=== PATIENT | male | born 1980 | race Two or more races ===

== ENCOUNTER → 2024-09-06 | Outpatient (CLI) | payer OTHER, SELFPAY ==
[2024-09-06 11:27] LABS: Basophils # (Auto) 0.1 Thou/mm3 (0.0-0.2); Basophils % (Auto) 1 % (0-2.5); Eosinophils # (Auto) 0.3 Thou/mm3 (0.0-0.5); Eosinophils % (Auto) 6 % (0-10); Hematocrit 45.1 % (41.0-53.0); Hemoglobin 15.4 g/dL (13.5-16.0); Immature Granulocytes % (Auto) 2 % (0-0); Immature Granulocytes Auto 0.11 Thou/mm3 (0.00-0.00); Lymphocytes # (Auto) 1.9 Thou/mm3 (1.0-4.8); Lymphocytes % (Auto) 35 % (10-50); Mean Corpuscular HGB Conc 34.1 g/dl (31.0-37.0); Mean Corpuscular Hemoglobin 28.5 pg (25.0-35.0); Mean Corpuscular Volume 84 fL (80-100); Monocytes # (Auto) 0.4 Thou/mm3 (0.0-0.8); Monocytes % (Auto) 7 % (0-12); Neutrophils # (Auto) 2.7 Thou/mm3 (1.8-7.7); Neutrophils % (Auto) 49 % (37-80); Nucleated Red Blood Cell % 0 /100 WBC (0); Platelet Count 166 Thou/mm3 (140-440); RDW Standard Deviation 39.5 fL (35.1-43.9); White Blood Count 5.5 Thou/mm3 (3.8-10.6)
[2024-09-06 11:40] LABS: Collection Type, Urine Clean Catch; Squamous Epithelial Cell,Urine 0 /hpf (0-5); WBC,Urine 0 /hpf (0-5)
[2024-09-06 11:45] LABS: Alanine Aminotransferase 14 U/L (10-49); Albumin, Serum 4.3 gm/dL (3.5-5.0); Albumin/Globulin Ratio 1.9 (1.2-2.2); Alkaline Phosphatase 102 U/L (46-116); Anion Gap 8 (7-16); Aspartate Amino Transferase 16 U/L (0-34); BUN/Creatinine Ratio 17 Ratio (12-20); Bilirubin,Total 0.5 mg/dL (0.3-1.2); Blood Urea Nitrogen 17 mg/dL (9-23); Calcium 9.1 mg/dL (8.3-10.6); Calcium (Corrected) 9.1 mg/dL (8.5-10.1); Carbon Dioxide 26.4 mMol/L (20.0-31.0); Cardiac Risk Estimate 3.9 RATIO (4.0-6.7); Chloride 99 mMol/L (98-107); Cholesterol 203 mg/dL (132-200); Globulin 2.3 gm/dL (2.3-3.5); Glucose 194 mg/dL (74-106); HDL Cholesterol 52 mg/dL (40-60); LDL Cholesterol,Calculated 130 mg/dL (0-130); Osmolality,Calculated 272 (275-295); Potassium 4.8 mMol/L (3.4-5.1); Sodium 133 mMol/L (136-145); Thyroid Stimulating Hormone 3.33 uIU/mL (0.55-4.78); Total Protein 6.6 gm/dL (5.7-8.2); Triglycerides 107 mg/dL (30-150); Vitamin D 25 Hydroxy Total 14.6 ng/mL (7.3-40.2); eGFR > 60 See Note
[2024-09-06 12:16] LABS: Bacteria,Urine Rare; Bilirubin,Urine Negative (Negative); Blood,Urine Negative (Negative); Clarity,Urine Clear (Clear/Hazy); Color,Urine Lt-Yellow (Lt Yel-Yel); Culture Indicated,Urine Not Indicated; Glucose, Urine 4+ (Negative); Ketones,Urine Negative (Negative); Leukocyte Esterase,Urine Negative (Negative); Nitrite,Urine Negative (Negative); Protein,Urine Negative (Neg - Trace); RBC,Urine 2 /hpf (0-3); Specific Gravity,Urine 1.029 (1.001-1.035); Urobilinogen,Urine Negative mg/dL (0.0-1.0)
== END | disposition home or self-care (01) ==
LOC: COPL 10:54
PROVIDERS: PCP Nurse Practitioner Family; Referring Provider Nurse Practitioner Family; Visit Provider Nurse Practitioner Family
DX: Z00.00 Encounter for general adult medical examination without abnormal findings (principal); Z13.0 Encounter for screening for diseases of the blood and blood-forming organs and certain disorders involving the immune mechanism; Z13.29 Encounter for screening for other suspected endocrine disorder; Z13.220 Encounter for screening for lipoid disorders
CPT/HCPCS: 36415; 80053; 80061; 81001; 82306; 84443; 85025

== ENCOUNTER 2024-09-16 14:50 | Emergency (ER) | payer OTHER, BC, SELFPAY ==
--- NOTE | 2024-09-16 14:52 | EDNOTE_ITS ---
<Statement entered by Tiffanie Pan MD - 09/17/24 19:21> As co-signing physician, I was present and available for consult prn. I concur with the plan and care as documented by the midlevel provider. ED General RME/HPI General Chief complaint: Abdominal Pain Stated complaint: ABDOMINAL PAIN Time Seen by Provider: 09/16/24 14:51 Arrival date/time: 09/16/24 14:50 RME / HPI RME / HPI narrative: 44-year-old male patient with with significant history of diabetes mellitus, came in for evaluation regarding right -sided abdominal pain. Onset of symptoms few minutes prior to ER visit as sudden onset of right-sided abdominal pain, severity 10 out of 10 pain associated with nausea vomiting. Denies any dysuria. Denies any hematuria. Denies any similar episode in the past. Denies any fever . No patient was given IV Tylenol on the way to the emergency room. Related Data Home Medications ?Medication ?Instructions ?Recorded ?Confirmed metformin 1,000 mg tablet 1,000 mg PO BID 01/19/20 01/19/20 sitagliptin phosphate 25 mg tablet 25 mg PO QDAY 01/19/20 01/19/20 (Januvia) Previous Rx's ?Medication ?Instructions ?Recorded metoclopramide HCl 10 mg tablet 10 mg PO Q6H PRN nausea and 11/14/23 (Reglan) vomiting #30 tabs metoclopramide HCl 10 mg tablet 10 mg PO Q6H PRN nausea and 06/02/24 (Reglan) vomiting #20 tabs metoclopramide HCl 10 mg tablet 10 mg PO Q6H PRN nausea and 09/16/24 (Reglan) vomiting #20 tabs metoclopramide HCl 10 mg tablet 10 mg PO Q6H PRN nausea and 09/16/24 (Reglan) vomiting #30 tabs Allergies Allergy/AdvReac Type Severity Reaction Status Date / Time No Known Allergies Allergy Verified 06/02/24 10:59 Review of Systems Review of Systems Narrative Review of Systems: Review of system reviewed and within normal limits except mentioned in HPI ED Exam Narrative Physical exam: VITAL SIGNS: Reviewed. GENERAL APPEARANCE: Alert and interactive, follows commands, no acute distress, HEAD AND FACE: Non-traumatic. ENT: PERRL, pink conjunctivitis, eyelid no trauma, Mucous membrane moist. NECK: Supple, nontender, no nuchal rigidity. CHEST: No tenderness, no crepitus, no paradoxical movement, no retractions. LUNGS: Clear, well ventilated, symmetric, no rales, no wheezing, no ronchi, no stridor, good breath sounds bilaterally. HEART: Regular rate, regular rhythm, no murmur, no gallops. ABDOMEN: Soft, positive bowel sounds, nondistended, no guarding, right abdominal tenderness, no rebound, no masses, RECTAL: Deferred. GENITAL: Deferred. NEUROLOGICAL: Gross motor function intact sensory function intact, Appropriate for age. MUSCULOSKELETAL: low back nontender, full range of motion. EXTREMITIES: Nontender, full range of motion. SKIN: Color pink, dry, no rash, no lacerations, no abrasions, no contusions. LYMPHATICS: Deferred. Course Quality Measures none Orders Category Date Time Status EKG (ED ONLY) *Do not use* NOW Care 09/16/24 14:[address] abdomen pelvis wo con Stat Exams 09/16/24 14:56 Completed EKG (ED Only) Stat Exams 09/16/24 14:57 Ordered CBC Stat Lab 09/16/24 15:14 Completed Comprehensive Metabolic Panel Stat Lab 09/16/24 15:14 Completed Partial Thromboplastin Time Stat Lab 09/16/24 15:14 Completed Urinalysis Stat Lab 09/16/24 18:18 Completed HYDROmorphone INJ [Dilaudid Inj] Med 09/16/24 15:03 Discontinued 2 mg IVP X1 ONE Ketorolac Inj [Toradol Inj] Med 09/16/24 14:51 Discontinued 30 mg IVP X1 ONE Sodium Chloride 0.9% 1000 ml [Ns] 1,000 ml Med 09/16/24 15:03 Discontinued IV 999 mls/hr Vital Signs Vital signs: Vital Signs Temperature 97.7 F 09/16/24 15:00 Pulse Rate 91 09/16/24 15:00 Respiratory Rate 19 09/16/24 15:00 Blood Pressure 204/95 H 09/16/24 15:00 Pulse Oximetry (%) 100 09/16/24 15:00 Oxygen Delivery Method Room Air 09/16/24 15:00 [facility] Patient data External records reviewed:: None Clinical information provided by:: patient Social determinants that could affect healthcare access:: none Patient has the following chronic illnesses:: Diabetes mellitus How is presenting disease/condition affected by chronic disease/condition?: e xacerbated by Evaluation data The following diagnostics were reviewed and interpreted by me:: lab results, radiology exam(s) and EKG tracing(s) Lab and/or radiology exams considered but not ordered:: None Interpretation Summary: EKG as interpreted by me showed sinus rhythm, ventricular rate of 84 bpm, FL interval 152 MS, no ST segment elevation depression noted. Laboratory couple came back unremarkable. CT scan of the abdomen and pelvis also came back normal. Medications Medications considered but not ordered:: None Medication administrations:: Medication Administration History Discontinued Medications Hydromorphone HCl (Hydromorphone Inj 2 Mg/Ml Vial) 2 mg IVP X1 ONE Stop: 09/16/24 15:04 Last Admin: 09/16/24 15:15 Dose: 2 mg Documented By: RAMON Sodium Chloride (Ns) 1,000 mls @ 999 mls/hr IV .Q1H1M ONE Stop: 09/16/24 16:03 Last Infusion: 09/16/24 18:38 Dose: Infused Documented By: Admin: 09/16/24 15:16 Dose: 999 mls/hr Documented By: RAMON Ketorolac Tromethamine (Ketorolac Inj 30 Mg/Ml Vial) 30 mg IVP X1 ONE Stop: 09/16/24 14:52 Last Admin: 09/16/24 14:57 Dose: 30 mg Documented By: RAMON IV fluids Toradol and Dilaudid Consultations Consultation(s) initiated? (list below): No Diagnosis Differential Diagnosis ED Complaint MDM: Abdominal pain, renal colic, kidney stones, gastroparesis Most likely diagnosis given after review of the tests above:: Abdominal pain Admission Indicated Admission indicated?: not indicated Explain why admission is indicated or not indicated:: Stable for discharge Admission Request Was there a request for admission?: No Disposition Plan Disposition Plan: Discharge Discharge Attestation Discharge Attestation: The patient and all family members were given an opportunity to ask questions and understood the discharge instructions. Discharge instructions specifically effects, indications for sooner follow up or return to the emergency department, and the expected course of current diagnosis. Patient condition: Stable Medical Decision Making MDM Narrative MDM Narrative: 44-year-old male patient with with significant history of diabetes mellitus, came in for evaluation regarding right -sided abdominal pain. Onset of symptoms few minutes prior to ER visit as sudden onset of right-sided abdominal pain, severity 10 out of 10 pain associated with nausea vomiting. Denies any dysuria. Denies any hematuria. Denies any similar episode in the past. Denies any fever . No patient was given IV Tylenol on the way to the emergency room. EKG as interpreted by me showed sinus rhythm, ventricular rate of 84 bpm, FL interval 152 MS, no ST segment elevation depression noted. Laboratory couple came back unremarkable. CT scan of the abdomen and pelvis also came back normal. On multiple reevaluation patient abdominal pain is totally gone. Patient received Dilaudid, Toradol, and IV fluids for hydration. Differential Diagnosis Differential Diagnosis: Abdominal pain, renal colic, kidney stones, gastroparesis Lab Data 09/16/24 15:14 09/16/24 15:14 Labs: Lab Results 09/16/24 09/16/24 Range/Units 15:14 18:18 WBC 9.8 (3.8-10.6) Thou/mm3 RBC 5.66 (4.50-5.90) Miln/mm3 Hgb 16.5 H (13.5-16.0) g/dL Hct 45.8 (41.0-53.0) % MCV 81 (80-100) fL MCH 29.2 (25.0-35.0) pg MCHC 36.0 (31.0-37.0) g/dl RDW Std Deviation 36.4 (35.1-43.9) fL Plt Count 208 D (140-440) Thou/mm3 Neut % (Auto) 78 (37-80) % Lymph % (Auto) 15 (10-50) % [place] % (Auto) 5 (0-12) % Eos % (Auto) 1 (0-10) % Baso % (Auto) 1 (0-2.5) % Neut # (Auto) 7.7 (1.8-7.7) Thou/mm3 Lymph # (Auto) 1.5 (1.0-4.8) Thou/mm3 [place] # (Auto) 0.4 (0.0-0.8) Thou/mm3 Eos # (Auto) 0.1 (0.0-0.5) Thou/mm3 Baso # (Auto) 0.1 (0.0-0.2) Thou/mm3 Immature Gran # (Auto) 0.07 H (0.00-0.00) Thou/mm3 Absolute Nucleated RBC 0.00 (0.00-0.00) Thou/mm3 Immature Gran % 1 H (0-0) % Nucleated RBC % 0 (0) /100 WBC APTT 23.4 (22.0-36.0) Seconds Sodium 133 L (136-145) mMol/L Potassium 3.8 (3.4-5.1) mMol/L Chloride 99 (98-107) mMol/L Carbon Dioxide 22.4 (20.0-31.0) mMol/L Anion Gap 12 (7-16) BUN 12 (9-23) mg/dL Creatinine 1.2 (0.6-1.3) mg/dL Estim Creat Clear Calc 98.6 (>60) mL/min eGFR > 60 (60 - ) See Note BUN/Creatinine Ratio 10 L (12-20) Ratio Glucose 256 H (74-106) mg/dL Calculated Osmolality 275 (275-295) Calcium 10.1 (8.3-10.6) mg/dL Corrected Calcium 10.1 (8.5-10.1) mg/dL Total Bilirubin 1.0 (0.3-1.2) mg/dL AST 16 (0-34) U/L ALT 26 (10-49) U/L Alkaline Phosphatase 111 (46-116) U/L Total Protein 7.8 (5.7-8.2) gm/dL Albumin 5.1 H (3.5-5.0) gm/dL Globulin 2.7 (2.3-3.5) gm/dL Albumin/Globulin Ratio 1.9 (1.2-2.2) Ur Collection Type Clean Catch Urine Color Yellow (Lt Yel-Yel) Urine Clarity Clear (Clear/Hazy) Urine pH 7.0 (5.0-7.0) Ur Specific [place] 1.048 H (1.001-1.035) Urine Protein 1+ A (Neg - Trace) Urine Glucose (UA) 4+ A (Negative) Urine Ketones 2+ A (Negative) Urine Blood Negative (Negative) Urine Nitrite Negative (Negative) Urine Bilirubin Negative (Negative) Urine Urobilinogen (Auto) Negative (0.0-1.0) mg/dL Ur Leukocyte Esterase Negative (Negative) Urine RBC 0 (0-3) /hpf Urine WBC 0 (0-5) /hpf Ur Squamous Epith Cells 1 (0-5) /hpf Urine Bacteria None (None) Discharge Plan Plan Patient Disposition: HOME (Self Care) Disposition Comment: stable Prescriptions/Referrals Prescriptions/Med Rec: New metoclopramide HCl [Reglan] 10 mg tablet 10 mg PO Q6H PRN (Reason: nausea and vomiting) Qty: 20 0RF metoclopramide HCl [Reglan] 10 mg tablet 10 mg PO Q6H PRN (Reason: nausea and vomiting) Qty: 30 0RF No Action metformin 1,000 mg Tablet 1,000 mg PO BID Januvia 25 mg Tablet 25 mg PO QDAY metoclopramide HCl [Reglan] 10 mg tablet 10 mg PO Q6H PRN (Reason: nausea and vomiting) Qty: 20 0RF metoclopramide HCl [Reglan] 10 mg tablet 10 mg PO Q6H PRN (Reason: nausea and vomiting) Qty: 30 0RF Referrals: JOSE ROBERTO العراقي [Primary Care Provider] - In 1 week Problem List Clinical Impression: Abdominal pain Patient/Caregiver Discharge Instructions Discharge Activity: activity as tolerated Education Materials: Abdominal Pain Additional Instructions: Thank you for the opportunity for serving you today. You are stable for discharged . You are advised to: Follow-up with your PCP in 1 to 2 days Return to ED for worsening of symptoms Increase oral fluids Take medication as prescribed Print Language: Wolof Stand Alone Forms: Jaylin Award Info., Patient Portal Info Letter JAMIE/MELISSA Supervising Physician JAMIE/MELISSA Supervising Physician: MD Maxim
--- NOTE | 2024-09-16 14:56 | XR_ITS ---
Examination: CT abdomen and pelvis without contrast. Coronal 3-D reconstructions. Sagittal 2-D reconstructions. Date and time of exam:September 16, 2024 1618 hrs. Indications: Onset right-sided flank pain today CTDI: vol (mGy): 11.8 DLP: (mGycm): 826 Technique: Axial images of the abdomen have been obtained, 3 mm slice thickness Intravenous contrast material has not been administered. Low dose protocols were performed. One or more of the following dose reduction techniques were used; automated exposure control, adjustment of the mA and/or KV according to patient size, use of iterative reconstruction technique. Findings: Liver is mildly irregular in contour, no focal liver lesions Absent gallbladder No pancreatic or splenic mass Normal adrenal glands. No renal or ureteral calculi There is mild bilateral renal parenchymal scar formation Aorta normal size Normal appendix 8mm fat-containing umbilical hernia No prostatomegaly No bladder mass or bladder calculi Moderate osteopenia Impression: Suspect primary hepatocellular disease Mild bilateral renal parenchymal scar formation No renal or ureteral calculi, no hydronephrosis Normal appendix No bladder mass or bladder calculi
[2024-09-16] MEDS: KETOROLAC INJ 30 MG/ML VIAL IVP (14:57)
--- NOTE | 2024-09-16 14:57 | EKG_ITS ---
[facility] Test Date: 2024-09-16 Pat Name: GRACIELA RYAN Department: Room: - Gender: Male [employer]: : [id number] Requested By: Kenny Celaya Order Number: [id number] Reading MD: Kenny Celaya Measurements Intervals [place] Rate: 84 P: 48 IA: 152 QRS: 47 QRSD: 96 T: 45 QT: 371 QTc: 440 Interpretive Statements SINUS RHYTHM Compared to ECG 06/02/2024 11:38:31 Sinus arrhythmia no longer present /store/S0/[id number]/ecg/[id number].pdf
[2024-09-16 14:58] VITALS: PULSE 98; RESP 18; O2SAT 98; BMI 33.5
[2024-09-16 15:00] VITALS: BP 204/95; PULSE 91; RESP 19; TEMP 36.5; O2SAT 100
[2024-09-16] MEDS: HYDROmorphone INJ 2 MG/ML VIAL IVP (15:15)
[2024-09-16] MEDS: SODIUM CHLORIDE 0.9% 1000 ML 1,000 ML 999 ML IV (15:16)
[2024-09-16 15:27] LABS: Basophils # (Auto) 0.1 Thou/mm3 (0.0-0.2); Basophils % (Auto) 1 % (0-2.5); Eosinophils # (Auto) 0.1 Thou/mm3 (0.0-0.5); Eosinophils % (Auto) 1 % (0-10); Hematocrit 45.8 % (41.0-53.0); Hemoglobin 16.5 g/dL (13.5-16.0); Immature Granulocytes % (Auto) 1 % (0-0); Immature Granulocytes Auto 0.07 Thou/mm3 (0.00-0.00); Lymphocytes # (Auto) 1.5 Thou/mm3 (1.0-4.8); Lymphocytes % (Auto) 15 % (10-50); Mean Corpuscular Hemoglobin 29.2 pg (25.0-35.0); Mean Corpuscular Volume 81 fL (80-100); Monocytes # (Auto) 0.4 Thou/mm3 (0.0-0.8); Monocytes % (Auto) 5 % (0-12); Neutrophils # (Auto) 7.7 Thou/mm3 (1.8-7.7); Neutrophils % (Auto) 78 % (37-80); Nucleated Red Blood Cell % 0 /100 WBC (0); Platelet Count 208 Thou/mm3 (140-440); RDW Standard Deviation 36.4 fL (35.1-43.9); Red Blood Count 5.66 Miln/mm3 (4.50-5.90); White Blood Count 9.8 Thou/mm3 (3.8-10.6)
[2024-09-16 15:43] LABS: Partial Thromboplastin Time 23.4 Seconds (22.0-36.0)
[2024-09-16 15:50] LABS: Alanine Aminotransferase 26 U/L (10-49); Albumin, Serum 5.1 gm/dL (3.5-5.0); Albumin/Globulin Ratio 1.9 (1.2-2.2); Alkaline Phosphatase 111 U/L (46-116); Anion Gap 12 (7-16); BUN/Creatinine Ratio 10 Ratio (12-20); Blood Urea Nitrogen 12 mg/dL (9-23); Calcium 10.1 mg/dL (8.3-10.6); Calcium (Corrected) 10.1 mg/dL (8.5-10.1); Carbon Dioxide 22.4 mMol/L (20.0-31.0); Chloride 99 mMol/L (98-107); Creatinine (Component) 1.2 mg/dL (0.6-1.3); Estimated Creatinine Clearance 98.6 mL/min (>60); Globulin 2.7 gm/dL (2.3-3.5); Glucose 256 mg/dL (74-106); Osmolality,Calculated 275 (275-295); Potassium 3.8 mMol/L (3.4-5.1); Sodium 133 mMol/L (136-145); Total Protein 7.8 gm/dL (5.7-8.2); eGFR > 60 See Note
[2024-09-16 16:00] LABS: Aspartate Amino Transferase 16 U/L (0-34)
[2024-09-16 16:15] VITALS: BP 128/82; PULSE 79; RESP 19; TEMP 36.6; O2SAT 98
[2024-09-16 18:23] VITALS: BP 129/84; PULSE 75; RESP 19; TEMP 36.7; O2SAT 98
[2024-09-16 18:30] LABS: Collection Type, Urine Clean Catch; RBC,Urine 0 /hpf (0-3); WBC,Urine 0 /hpf (0-5)
[2024-09-16 18:44] LABS: Bilirubin,Urine Negative (Negative); Blood,Urine Negative (Negative); Clarity,Urine Clear (Clear/Hazy); Color,Urine Yellow (Lt Yel-Yel); Glucose, Urine 4+ (Negative); Ketones,Urine 2+ (Negative); Leukocyte Esterase,Urine Negative (Negative); Nitrite,Urine Negative (Negative); Protein,Urine 1+ (Neg - Trace); Specific Gravity,Urine 1.048 (1.001-1.035); Squamous Epithelial Cell,Urine 1 /hpf (0-5); Urobilinogen,Urine Negative mg/dL (0.0-1.0)
== END 2024-09-16 19:15 | disposition home or self-care (01) ==
PROVIDERS: Nurse Practitioner Family; Emergency Provider Emergency Medicine; PCP Nurse Practitioner Family
DX: R10.9 Unspecified abdominal pain (principal); E11.9 Type 2 diabetes mellitus without complications
CPT/HCPCS: 36415; 74176; 80053; 81001; 85025; 85730; 93005; 96361; 96374; 96375; 99284; J1885; J3490; J7030

== ENCOUNTER 2024-10-02 14:31 | Emergency (ER) | payer OTHER, BC, SELFPAY ==
[2024-10-02 14:32] VITALS: BP 187/100; PULSE 105; RESP 22; TEMP 37; O2SAT 98
[2024-10-02] MEDS: METOCLOPRAMIDE INJ 5 MG/ML VIAL 2 ML 10 MG IM (15:43)
[2024-10-02] MEDS: HALOPERIDOL LACT INJ 5 MG/ML VIAL 10 MG IM (15:44)
[2024-10-02] MEDS: KETOROLAC INJ 60 MG/2 ML VIAL 30 MG IM (15:44)
[2024-10-02] MEDS: DiphenhydrAMINE INJ 50 MG/ML VIAL IM (15:45)
--- NOTE | 2024-10-02 16:52 | EDNOTE_ITS ---
ED General RME/HPI General Chief complaint: Abdominal Pain Stated complaint: RIGHT FLANK PAIN TODAY Time Seen by Provider: 10/02/24 14:48 Arrival date/time: 10/02/24 14:31 RME / HPI RME / HPI narrative: 44-year-old male with regular marijuana use who presents to the emergency department with recurrence of his right-sided abdominal pain with nausea and vomiting. He notes several workups including laboratory testing and several abdominal CT scans that shows no acute pathology found. He advises that morphine works best for his pain. Vomiting is bilious and nonbloody. He denies diarrhea or constipation. He has no history of abdominal surgeries. He denies sick contacts. Related Data Home Medications ?Medication ?Instructions ?Recorded ?Confirmed metformin 1,000 mg tablet 1,000 mg PO BID 01/19/20 01/19/20 sitagliptin phosphate 25 mg tablet 25 mg PO QDAY 01/19/20 01/19/20 (Januvia) Previous Rx's ?Medication ?Instructions ?Recorded metoclopramide HCl 10 mg tablet 10 mg PO Q6H PRN nausea and 11/14/23 (Reglan) vomiting #30 tabs metoclopramide HCl 10 mg tablet 10 mg PO Q6H PRN nausea and 06/02/24 (Reglan) vomiting #20 tabs metoclopramide HCl 10 mg tablet 10 mg PO Q6H PRN nausea and 09/16/24 (Reglan) vomiting #20 tabs metoclopramide HCl 10 mg tablet 10 mg PO Q6H PRN nausea and 09/16/24 (Reglan) vomiting #30 tabs ondansetron 4 mg disintegrating 4 mg PO Q8H PRN nausea and 10/02/24 tablet vomiting #20 tabs Allergies Allergy/AdvReac Type Severity Reaction Status Date / Time No Known Allergies Allergy Verified 10/02/24 14:34 Review of Systems Review of Systems Systems Reviewed: All systems reviewed, normal except as documented ED Exam Narrative Physical exam: GENERAL APPEARANCE: AxOx4, nontoxic appearing, but groans very loudly and screams and vomits at the same time HEENT: NC, AT. MMM. EOMI, clear conjunctiva, oropharynx clear. NECK: Supple without lymphadenopathy. No stiffness or restricted ROM. HEART: Normal rate and regular rhythm, normal S1/S1, no m/r/g LUNGS: CTAB, moving air well. No crackles or wheezes are heard. ABDOMEN: Soft, diffuse tenderness formal exam limited by voluntary, nondistended with good bowel sounds heard. BACK: No midline C/T/L spine pain or deformity, No CVAT, no obvious deformity. EXTREMITIES: Without cyanosis, clubbing or edema. MUSCULOSKELETAL: FROM of all major joints, no chest tenderness NEUROLOGICAL: Grossly nonfocal. Alert and oriented, moving all 4 extremities. CN not formally tested but appear grossly intact. Observed to ambulate with normal gait. Skin: Warm and dry without any rash. Course Quality Measures none Orders Category Date Time Status Bedside Blood Glucose NOW Care 10/02/24 14:51 Completed Acetaminophen Tab [Tylenol Tab] Med 10/02/24 16:54 Discontinued 650 mg PO X1 ONE DiphenhydrAMINE INJ [Benadryl Inj] Med 10/02/24 14:50 Discontinued 50 mg IM X1 ONE Haloperidol Lactate [Haldol Inj] Med 10/02/24 14:50 Discontinued 10 mg IM X1 ONE Ketorolac Inj [Toradol Inj] Med 10/02/24 14:50 Discontinued 30 mg IM X1 ONE Metoclopramide Inj [Reglan Inj] Med 10/02/24 14:50 Discontinued 10 mg IM X1 ONE Vital Signs Vital signs: Vital Signs Temperature 98.6 F 10/02/24 14:32 Pulse Rate 105 H 10/02/24 14:32 Respiratory Rate 22 H 10/02/24 14:32 Blood Pressure 187/100 H 10/02/24 14:32 Pulse Oximetry (%) 98 10/02/24 14:32 Oxygen Delivery Method Room Air 10/02/24 14:32 SpO2 98% on room air, patient is not hypoxic MDM Patient data External records reviewed:: [facility] previous records (Several visits for identical pain, for abdominal CTs in the year 2023 which all showed no acute pathology, 7 CTs on record that all showed no acute pathology, laboratory testing shows also no acute abnormality) Clinical information provided by:: patient Social determinants that could affect healthcare access:: substance use Patient has the following chronic illnesses:: Chronic abdominal pain How is presenting disease/condition affected by chronic disease/condition?: caused by Evaluation data The following diagnostics were reviewed and interpreted by me:: other (specify) (Not applicable) Lab and/or radiology exams considered but not ordered:: As per narrative Interpretation Summary: As per narrative Medications Medications considered but not ordered:: None Medication administrations:: Medication Administration History Discontinued Medications Acetaminophen (Acetaminophen 325 Mg Tablet) 650 mg PO X1 ONE Stop: 10/02/24 16:55 Last Admin: 10/02/24 17:26 Dose: 650 mg Documented By: MARJORIE Diphenhydramine HCl (Diphenhydramine Inj 50 Mg/Ml Vial) 50 mg IM X1 ONE Stop: 10/02/24 14:51 Last Admin: 10/02/24 15:45 Dose: 50 mg Documented By: YOUNG Haloperidol Lactate (Haloperidol Lact Inj 5 Mg/Ml Vial) 10 mg IM X1 ONE Stop: 10/02/24 14:51 Last Admin: 10/02/24 15:44 Dose: 10 mg Documented By: YOUNG Ketorolac Tromethamine (Ketorolac Inj 60 Mg/2 Ml Vial) 30 mg IM X1 ONE Stop: 10/02/24 14:51 Last Admin: 10/02/24 15:44 Dose: 30 mg Documented By: YOUNG Metoclopramide HCl (Metoclopramide Inj 5 Mg/Ml Vial 2 Ml) 10 mg IM X1 ONE; Protocol Stop: 10/02/24 14:51 Last Admin: 10/02/24 15:43 Dose: 10 mg Documented By: YOUNG Above Consultations Consultation(s) initiated? (list below): No Diagnosis Differential Diagnosis ED Complaint MDM: Chronic abdominal pain, cannabis induced hyperemesis, gastroparesis Most likely diagnosis given after review of the tests above:: See below Admission Indicated Admission indicated?: not indicated Explain why admission is indicated or not indicated:: As per narrative Admission Request Was there a request for admission?: No Disposition Plan Disposition Plan: Discharge Discharge Attestation Discharge Attestation: The patient and all family members were given an opportunity to ask questions and understood the discharge instructions. Discharge instructions specifically effects, indications for sooner follow up or return to the emergency department, and the expected course of current diagnosis. Patient condition: Stable Medical Decision Making MDM Narrative MDM Narrative: Mr. Zavala presents to the emergency department with recurrence of his chronic right sided abdominal pain. He does acknowledge several visits to the emergency department and understands that laboratory testing is CTs that were done are negative. I have reviewed this also on his medical record where he has had several CT scans this year alone including laboratory testing which all have been negative. He has a CT scan as recent as the 12th of this month which was negative as he has stable vital signs, has a recurrence of his chronic issue that has been negative his workup, repeat laboratory testing and radiography is not indicated here today. He was treated with multimodal nonnarcotic pain management for chronic abdominal pain in the setting of chronic marijuana use. I do not feel he warrants opiate treatment at this time although this is of his request. Although his pain is not fully manage he does have a component of chronic pain and advised to follow-up with his primary care doctor for further or even possibly referral to pain management Differential Diagnosis Differential Diagnosis: Chronic abdominal pain, cannabis induced hyperemesis, gastroparesis Discharge Plan Plan Patient Disposition: HOME (Self Care) Prescriptions/Referrals Prescriptions/Med Rec: New ondansetron 4 mg tablet,disintegrating 4 mg PO Q8H PRN (Reason: nausea and vomiting) Qty: 20 0RF No Action metformin 1,000 mg Tablet 1,000 mg PO BID Januvia 25 mg Tablet 25 mg PO QDAY metoclopramide HCl [Reglan] 10 mg tablet 10 mg PO Q6H PRN (Reason: nausea and vomiting) Qty: 20 0RF metoclopramide HCl [Reglan] 10 mg tablet 10 mg PO Q6H PRN (Reason: nausea and vomiting) Qty: 20 0RF metoclopramide HCl [Reglan] 10 mg tablet 10 mg PO Q6H PRN (Reason: nausea and vomiting) Qty: 30 0RF metoclopramide HCl [Reglan] 10 mg tablet 10 mg PO Q6H PRN (Reason: nausea and vomiting) Qty: 30 0RF Problem List Clinical Impression: Abdominal pain, chronic, right upper quadrant, Cannabinoid hyperemesis syndrome Patient/Caregiver Discharge Instructions Education Materials: Cannabinoid Hyperemesis Syndrome, ED Chronic Pain Additional Instructions: Consider stopping marijuana completely for better health. Follow-up with your primary care doctor for possible referral to GI specialist and/or pain management for further management. You can return to the emergency department if symptoms worsen or or any new or concerning issues. Print Language: Uruguayan Stand Alone Forms: Jaylin Award Info., Patient Portal Info Letter
[2024-10-02] MEDS: ACETAMINOPHEN 325 MG TABLET 650 MG PO (17:26)
[2024-10-02 17:30] VITALS: BP 194/119; PULSE 81; RESP 16; TEMP 36.9; O2SAT 98
[2024-10-02 17:39] VITALS: BP 174/110
== END 2024-10-02 17:39 | disposition home or self-care (01) ==
LOC: SERX 18:27
PROVIDERS: Emergency Provider Emergency Medicine
DX: R10.11 Right upper quadrant pain (principal); F12.90 Cannabis use, unspecified, uncomplicated; R11.2 Nausea with vomiting, unspecified
CPT/HCPCS: 96372; 99283; J1200; J1630; J1885; J2765; A9270

== ENCOUNTER → 2025-07-18 | Outpatient (CLI) | payer OTHER, BC, SELFPAY ==
--- NOTE | 2025-07-18 12:30 | XR_ITS ---
Examination: Retroperitoneal ultrasound, complete Technique: Multiple high resolution grayscale images of the retroperitoneum obtained, including kidneys and bladder. Exam date and time: July 18, 2025, 1230 hours INDICATIONS: Blood in the urine on laboratory examination 1 week ago FINDINGS: Right kidney 13.4 cm renal cortex 2.2 cm Left kidney 12.9 cm cortex 2.3 cm Mild renal scar formation No hydronephrosis Contracted urinary bladder Prostate volume 21 cc no prostate nodules IMPRESSION: Mild renal parenchymal scar formation
== END | disposition home or self-care (01) ==
LOC: CDIM 12:19
PROVIDERS: Referring Provider Nurse Practitioner Family; Visit Provider Nurse Practitioner Family
DX: N28.89 Other specified disorders of kidney and ureter (principal)
CPT/HCPCS: 76770